=== PATIENT | female | born 1985 | race Caucasian/White ===

== ENCOUNTER 2017-12-16 23:41 | Inpatient (IN) | payer OTHER ==
--- NOTE | 2017-12-16 23:55 | HP ---
COWS - Scale Resting Pulse: 1= [place] 81-100 Sweatin=Flushed/Facial Moisture Restless Observation: 1= Difficult to Sit Still Pupil Size: 1= Pupils >than Normal Bone or Joint Aches: 4=Acute Joint/Muscle Pain Runny Nose/ Eye Tearin= None GI Upset > 30mins: 1= Stomach Cramp Tremor Observation: 2= Slight Tremor Visible Yawning Observation: 1= 1-2x During Session Anxiety or Irritability: 2=Irritable/Anxious Goose Flesh Skin: 0=Smooth Skin COWS Score: 15 CIWA Score - CIWA Score Nausea/Vomitin-No Nausea/No Vomiting Muscle Tremors: 4-Moderate,w/Arms Extend Anxiety: 4-Mod. Anxious/Guarded Agitation: 3 Paroxysmal Sweats: 3 Orientation: 0-Oriented Tacttile Disturbances: 1-Very Mild Itch/Numbness Auditory Disturbances: 0-None Visual Disturbances: 0-None Headache: 1-Very Mild CIWA-Ar Total Score: 16 Admission ROS BHS - HPI Chief Complaint: C/O WITHDRAWAL SX'S. SEEKING DETOX FOR HEROIN/ALCOHOL/RX BENZO DEPENDENCE Allergies/Adverse Reactions: Allergies Allergy/AdvReac Type Severity Reaction Status Date / Time No Known Allergies Allergy Verified 12/16/17 23:47 History of Present Illness: 32 Y.O. FEMALE WITH HX/O ALCOHOLISM, HEROIN, AND BENZO DEPENDENCE SEEKING DETOX. CLIENT IS KNOWN TO THIS PROGRAM. LAST HERE IN 2015. SELF REFERRED. DENIES ANY SIGNIFICANT PERIOD OF CLEAN TIME. Exam Limitations: Clinical Condition - Ebola screening Have you traveled outside of the country in the last 21 days: No Have you had contact with anyone from an Ebola affected area: No Have you been sick,other than usual withdrawal symptoms: No Do you have a fever: No - Review of Systems Constitutional: Chills, Loss of Appetite, Malaise, Night Sweats, Changes in sleep EENT: reports: No Symptoms Reported Respiratory: reports: No Symptoms reported Cardiac: reports: No Symptoms Reported GI: reports: Poor Appetite, Poor Fluid Intake, Abdominal cramping : reports: No Symptoms Reported Musculoskeletal: reports: Back Pain, Joint Pain Integumentary: reports: Flushing Neuro: reports: Headache Endocrine: reports: No Symptoms Reported Hematology: reports: No Symptoms Reported Psychiatric: reports: Anxious Other Systems: Reviewed and Negative Patient History - Patient Medical History Hx Anemia: No Hx Asthma: No Hx Chronic Obstructive Pulmonary Disease (COPD): No Hx Cancer: No Hx Cardiac Disorders: No Hx Congestive Heart Failure: No Hx Hypertension: No Hx Hypercholesterolemia: No Hx Pacemaker: No HX Cerebrovascular Accident: No Hx Seizures: No Hx Dementia: No Hx Diabetes: No Hx Gastrointestinal Disorders: No Hx Liver Disease: No Hx Genitourinary Disorders: No Hx Sexually Transmitted Disorders: No Hx Renal Disease (ESRD): No Hx Thyroid Disease: No Hx Human Immunodeficiency Virus (HIV): No Hx Hepatitis C: No Hx Depression: No Hx Suicide Attempt: No Hx Bipolar Disorder: No Hx Schizophrenia: No Other Medical History: ANXIETY/ADD - Patient Surgical History Past Surgical History: Yes Hx Neurologic Surgery: No Hx Cataract Extraction: No Hx Cardiac Surgery: No Hx Lung Surgery: No Hx Breast Surgery: No Hx Breast Biopsy: No Hx Abdominal Surgery: No Hx Appendectomy: No Hx Cholecystectomy: No Hx Genitourinary Surgery: No Hx Section: Yes (2008) Hx Orthopedic Surgery: No Hx Hysterectomy: No Anesthesia Reaction: No - PPD History Previous Implant?: Yes Documented Results: Negative w/proof Implanted On Prior R Admission?: Yes Date: 08/18/16 Results: 0MM PPD to be Administered?: Yes - Reproductive History Patient is a Female of Child Bearing Age (11 -55 yrs old): Yes Last Menstrual Period: 12/02/17 LMP comment: REG Patient : [place] [facility] - Smoking Cessation Smoking history: Current every day smoker Have you smoked in the past 12 months: Yes Aproximately how many cigarettes per day: 10 Cigars Per Day: 0 Hx Chewing Tobacco Use: No Initiated information on smoking cessation: Yes 'Breaking Loose' booklet given: 12/17/17 - Substance & Tx. History Hx Alcohol Use: Yes Hx Substance Use: Yes Substance Use Type: Alcohol, Cocaine, Heroin, Marijuana, Prescribed (XANAX/ VALIUM) Hx Substance Use Treatment: Yes ([facility]) - Substances Abused HEROIN Route: Inhalation Frequency: Daily Amount used: 10 BAGS Age of first use: 27 Date of Last Use: 12/16/17 LIQUOR Route: Oral Frequency: Daily Amount used: 1/2 PINT Age of first use: 17 Date of Last Use: 12/16/17 COCAINE Route: Inhalation Frequency: 1-3 times last 30 days Amount used: $10 Age of first use: 19 Date of Last Use: 12/16/17 THC Route: Smoking Frequency: Daily Amount used: 1 JOINT Age of first use: 16 Date of Last Use: 12/16/17 XANAX Route: Oral Frequency: Daily Amount used: 1MG Age of first use: 30 Date of Last Use: 12/16/17 VALIUM Route: Oral Frequency: Daily Amount used: 10 Age of first use: 30 Date of Last Use: 12/16/17 Family Disease History - Family Disease History Family Disease History: Heart Disease: Mother, CA: Father (THROAT CA, ALCOHOL ) , Other: Father Admission Physical Exam [facility] - Physical General Appearance: Yes: Appropriately Dressed, Mild Distress, Tremorous, Anxious HEENTM: Yes: EOMI, Normocephalic, Normal Voice, ESHA, Pharynx Normal Respiratory: Yes: Chest Non-Tender, Lungs Clear, Normal Breath Sounds, No Respiratory Distress, No Accessory Muscle Use Neck: Yes: No masses,lesions,Nodules, Supple, Trachea in good position Breast: Yes: Breast Exam Deferred Cardiology: Yes: Regular Rhythm, Regular Rate, S1, S2 Abdominal: Yes: Normal Bowel Sounds, Non Tender, Flat, Soft Genitourinary: Yes: Within Normal Limits Back: Yes: Normal Inspection Musculoskeletal: Yes: full range of Motion, Gait Steady Extremities: Yes: Normal Capillary Refill, Normal Range of Motion, Non-Tender, Tremors Neurological: Yes: commission associate II-XII NML intact, Fully Oriented, Alert, Motor Strength 5/5 Integumentary: Yes: Dry, Warm, Other (FLUSHING OF FACE) Lymphatic: Yes: Within Normal Limits - Diagnostic (1) Cocaine dependence, uncomplicated Current Visit: Yes Status: Chronic (2) Cannabis dependence, uncomplicated Current Visit: Yes Status: Chronic (3) Opioid dependence with withdrawal Current Visit: No Status: Chronic (4) Alcohol dependence with uncomplicated withdrawal Current Visit: No Status: Chronic (5) Nicotine dependence Current Visit: No Status: Chronic Qualifiers: Nicotine product type: cigarettes Substance use status: uncomplicated Qualified Code(s): F17.210 - Nicotine dependence, cigarettes, uncomplicated (6) Sedative, hypnotic or anxiolytic dependence with withdrawal, uncomplicated Current Visit: No Status: Chronic Cleared for Admission [facility] - Detox or Rehab [facility] Level of Care: Medically Managed Detox Regimen/Protocol: Methadone/Valium BHS Breath Alcohol Content Breath Alcohol Content: 0 Vital Signs - Vital Signs Vital Signs Refused: No Temperature: 96.5 F Temperature Source: Oral Pulse Rate: 84 Respiratory Rate: 20 Blood Pressure: 124/75 BP Location: Right Arm Blood Pressure Position: Sitting - Height Height: 5 ft 7 in - Weight Weight: 68.039 kg Weight Measurement Method: Standing Scale Body Mass Index (BMI): 23.5 - Bowel Function Bowel Movement: No Urine Pregancy Test - Test Device Lot Number: [id number] Expiration Date: 07/04/18 - Control Horizontal Line in Upper Control Window?: Yes - Result Urine Test Results: Negative- NO Line Present Urine Drug Screen - Test Device Lot Number: [id number] Expiration Date: 08/04/19 - Control Is Test Valid: Yes - Results Drug Screen Negative: No Urine Drug Screen Results: THC-Marijuana, SAMANTHA-Cocaine, OPI-Opiates, BZO- Benzodiazepines, OXY-Oxycodone
[2017-12-17 00:11] VITALS: BMI 23.5
[2017-12-17] MEDS ORDERED: guaiFENesin/D-METHORPHAN HB 10 ML UNIT-DOSE CUPS PO PRN (00:14)
[2017-12-17] MEDS ORDERED: LOPERAMIDE HCL 2 MG CAPSULE PO PRN (00:14)
[2017-12-17] MEDS ORDERED: ACETAMINOPHEN 325 MG TABLET (FP) PO PRN (00:14)
[2017-12-17] MEDS ORDERED: diazePAM 5 MG TABLET PO ONE (00:14)
[2017-12-17] MEDS ORDERED: MAG HYDROX/AL HYDROX/SIMETH 30 ML UNIT-DOSE CUP PO PRN (00:14)
[2017-12-17] MEDS ORDERED: MENTHOL/PHENOL 1 EACH UD MM PRN (00:14)
[2017-12-17] MEDS ORDERED: P-EPHED 60MG/TRIPROLIDI 2.5MG TABLET PO PRN (00:14)
[2017-12-17] MEDS ORDERED: MAGNESIUM CITRATE 300 ML BOTTLE PO PRN (00:14)
[2017-12-17] MEDS ORDERED: METHADONE HCL 10 MG TABLET (FOR DETOX USE ONLY) PO ONE ×3 (00:14→23:00)
[2017-12-17] MEDS ORDERED: MAGNESIUM HYDROX 2400MG/30ML ORAL SUSPENSION 30 ML CUP PO PRN (00:14)
[2017-12-17] MEDS: diazePAM 5 MG TABLET PO SCH ×3 (05:21→22:24)
--- NOTE | 2017-12-17 09:18 | CONSULT ---
[facility] Psychiatric Consult - Data Date of interview: 12/17/17 Admission source: [facility] Identifying data: This is 32 years old female, single mother of one, living with family, multimedia journalist working, with no psychiatric hospitalization history, looking for detoxification from Alcohol, Cocaine, Benzo, Nicotine Substance Abuse History: Smoking history: Current every day smoker. Have you smoked in the past 12 months: Yes. Aproximately how many cigarettes per day: 10. Cigars Per Day: 0. Hx Chewing Tobacco Use: No. Initiated information on smoking cessation: Yes. 'Breaking Loose' booklet given: 12/17/17. - Substance & Tx. History. Hx Alcohol Use: Yes. Hx Substance Use: Yes. Substance Use Type : Alcohol, Cocaine, Heroin, Marijuana, Prescribed (XANAX/VALIUM). Hx Substance Use Treatment: Yes ([facility]). - Substances Abused. HEROIN. Route: Inhalation. Frequency: Daily. Amount used: 10 BAGS. Age of first use: 27. Date of Last Use: 12/16/17. LIQUOR. Route: Oral. Frequency: Daily. Amount used: 1/2 PINT. Age of first use: 17. Date of Last Use: 12/16/17. COCAINE. Route: Inhalation. Frequency: 1-3 times last 30 days. Amount used: $ 10. Age of first use: 19. Date of Last Use: 12/16/17. THC. Route: Smoking. Frequency: Daily. Amount used: 1 JOINT. Age of first use: 16. Date of Last Use: 12/16/17. XANAX. Route: Oral. Frequency: Daily. Amount used : 1MG. Age of first use: 30. Date of Last Use: 12/16/17. VALIUM. Route: Oral. Frequency: Daily. Amount used: 10. Age of first use: 30. Date of Last Use: 12/16/17 Medical History: Denies significant medical issues Psychiatric History: Patient reports history of anxiety and depression, reports taking prior to admission: Adderal 10mg po tid. Seroquel 100mg po qhs Physical/Sexual Abuse/Trauma History: Denies Additional Comment: Seroquel 100mg po qhs Mental Status Exam - Mental Status Exam Alert and Oriented to: Person Cognitive Function: Fair Patient Appearance: Unkempt Mood: Sad Affect: Flat Patient Behavior: Sedated Speech Pattern: Delayed Voice Loudness: Mildly Soft/Quiet Thought Process: Goal Oriented Thought Disorder: Being Controlled Hallucinations: Denies Suicidal Ideation: Denies Homicidal Ideation: Denies Insight/Judgement: Fair Sleep: Difficulty falling asleep Appetite: Fair Muscle strength/Tone: Mild Hypotonicity Gait/Station: Shuffling Additional Comments: Seroquel 100mg po qhs Psychiatric Findings - Problem List ([place] 1, 2,3) (1) Cannabis dependence, uncomplicated Current Visit: Yes Status: Chronic (2) Cocaine dependence, uncomplicated Current Visit: Yes Status: Chronic (3) Admitted to substance misuse detoxification center Current Visit: No Status: Acute (4) Alcohol dependence with uncomplicated withdrawal Current Visit: No Status: Chronic (5) Marijuana dependence Current Visit: No Status: Chronic (6) Nicotine dependence Current Visit: No Status: Chronic Qualifiers: Nicotine product type: cigarettes Substance use status: uncomplicated Qualified Code(s): F17.210 - Nicotine dependence, cigarettes, uncomplicated (7) Opioid dependence with withdrawal Current Visit: No Status: Chronic (8) Sedative, hypnotic or anxiolytic dependence with withdrawal, uncomplicated Current Visit: No Status: Chronic Comment: RX - Initial Treatment Plan Initial Treatment Plan: Seroquel 100mg po qhs
--- NOTE | 2017-12-17 10:03 | PN ---
[facility] CIWA - CIWA Score Nausea/Vomitin Muscle Tremors: 3 Anxiety: 3 Agitation: 3 Paroxysmal Sweats: 1-Minimal Palms Moist Orientation: 0-Oriented Tacttile Disturbances: 1-Very Mild Itch/Numbness Auditory Disturbances: 1-Very Mild Visual Disturbances: 0-None Headache: 2-Mild CIWA-Ar Total Score: 17 BHS COWS - Scale Resting Pulse: 1= [place] 81-100 Sweatin=Flushed/Facial Moisture Restless Observation: 3= Extraneous Movement Pupil Size: 1= Pupils >than Normal Bone or Joint Aches: 2= Severe Diffuse Aches Runny Nose/ Eye Tearin= Runny Nose/Eyes GI Upset > 30mins: 2= Nausea/Diarrhea Tremor Observation of Outstretched Hands: 2= Slight Tremor Visible Yawning Observation: 1= 1-2x During Session Anxiety or Irritability: 2=Irritable/Anxious Goose Flesh Skin: 0=Smooth Skin COWS Score: 18 BHS Progress Note (SOAP) Subjective: ALERT,IRRITABLE,ANXIOUS,INTERRUPTED SLEEP,TREMOR,PAIN IN THE BODY AND BACK Objective: 12/17/17 10:02 Vital Signs Temperature 97.9 F 12/17/17 09:51 Pulse Rate 70 12/17/17 09:51 Respiratory Rate 18 12/17/17 09:51 Blood Pressure 112/61 12/17/17 09:51 O2 Sat by Pulse Oximetry (%) EKG NSR,NORMAL ECG LABS PENDING Assessment: 12/17/17 10:03 WITHDRAWAL SYMPTOM Plan: CONTINUE DETOX
[2017-12-17 10:09] LABS: HEMATOCRIT 34.7 % (32.4-45.2); HEMOGLOBIN 11.9 GM/dL (10.7-15.3); MCH 30.2 pg (25.7-33.7); MCHC 34.1 g/dl (32.0-36.0); MEAN CELL VOLUME 88.4 fl (80-96); MEAN PLT VOLUME 7.9 fl (7.5-11.1); PLATELET COUNT 259 K/MM3 (134-434); RBC 3.93 M/mm3 (3.60-5.2); RDW 13.5 % (11.6-15.6); WHITE BLOOD COUNT 7.2 K/mm3 (4.0-10.0)
[2017-12-17 10:28] LABS: CHLORIDE 105 mmol/L (98-107); POTASSIUM 3.9 mmol/L (3.5-5.1); SODIUM 139 mmol/L (136-145)
[2017-12-17 10:41] LABS: ALBUMIN 3.2 g/dl (3.4-5.0); ALK PHOS 69 U/L (45-117); ANION GAP 9 (8-16); BILIRUBIN,TOTAL 0.4 mg/dL (0.2-1.0); BLOOD UREA NITROGEN 10 mg/dL (7-18); CALCIUM 7.7 mg/dL (8.5-10.1); CO2 25 mmol/L (21-32); CREATININE 0.6 mg/dL (0.55-1.02); GLUCOSE,RANDOM 97 mg/dL (74-106); SGOT/AST 10 U/L (15-37); SGPT/ALT 11 U/L (12-78); TOT PROT 5.9 g/dl (6.4-8.2)
[2017-12-17] MEDS: diazePAM 5 MG TABLET PO PRN ×2 (10:41→17:25)
[2017-12-17] MEDS: PRENATAL VITAMINS W/ FOLIC ACID TABLET (FP) PO SCH (10:42)
[2017-12-17] MEDS: NICOTINE 14 MG/24 HOURS TOPICAL PATCH TD SCH (10:42)
[2017-12-17] MEDS: IBUPROFEN 400 MG TABLET (FP) PO PRN (10:43)
--- NOTE | 2017-12-17 11:04 | PN ---
BHS Progress Note Note: WITHDRAWAL SYMPTOM,MEDICATION ADJUSTED
[2017-12-17] MEDS: CYCLOBENZAPRINE HCL 10 MG TABLET (FP) PO PRN ×2 (11:12→17:25)
[2017-12-17 15:21] LABS: URINE APPEARANCE CLOUDY; URINE BILIRUBIN NEGATIVE (NEGATIVE); URINE BLOOD NEGATIVE (NEGATIVE); URINE COLOR DKYELLOW; URINE GLUCOSE (UA) NEGATIVE (NEGATIVE); URINE KETONE NEGATIVE (NEGATIVE); URINE NITRITE POSITIVE (NEGATIVE); URINE PROTEIN NEGATIVE (NEGATIVE); URINE UROBILINOGEN NEGATIVE mg/dL (0.2-1.0)
[2017-12-17 15:26] LABS: URINE LEUK ESTERASE 1+ (NEGATIVE)
[2017-12-17 15:29] LABS: EPI CELLS FEW /HPF (FEW); URINE BACTERIA MANY /hpf (NONE SEEN); URINE MUCUS MANY
--- NOTE | 2017-12-17 16:43 | EKG ---
Test Reason : Blood Pressure : / mmHG Vent. Rate : 066 BPM Atrial Rate : 066 BPM P-R Int : 136 ms QRS Dur : 086 ms QT Int : 406 ms P-R-T Axes : 051 066 044 degrees QTc Int : 425 ms NORMAL SINUS RHYTHM NORMAL ECG WHEN COMPARED WITH ECG OF 17-DEC-2017 00:10, PREMATURE VENTRICULAR COMPLEXES ARE NO LONGER PRESENT Confirmed by NATHALY KING MD ([id number]) on 12/17/2017 4:43:17 PM Referred By: Steven Jarquin Confirmed By:NATHALY KING MD
[2017-12-17] MEDS: NICOTINE POLACRILEX 2 MG GUM BUC PRN ×2 (17:25→19:33)
[2017-12-17] MEDS: QUEtiapine FUMARATE 100 MG TABLET (FP) PO SCH (20:13)
[2017-12-17] MEDS: THIAMINE HCL 100 MG TABLET (FP) PO SCH (22:24)
[2017-12-18] MEDS: CYCLOBENZAPRINE HCL 10 MG TABLET (FP) PO PRN ×3 (00:36→22:51)
[2017-12-18] MEDS: diazePAM 5 MG TABLET PO SCH ×3 (05:14→22:51)
[2017-12-18] MEDS ORDERED: METHADONE HCL 5 MG TABLET (FOR DETOX USE ONLY) PO ONE (10:00)
[2017-12-18] MEDS ORDERED: METHADONE HCL 10 MG TABLET (FOR DETOX USE ONLY) PO SCH (10:00)
[2017-12-18] MEDS: NICOTINE 14 MG/24 HOURS TOPICAL PATCH TD SCH (10:19)
[2017-12-18] MEDS: PRENATAL VITAMINS W/ FOLIC ACID TABLET (FP) PO SCH (10:19)
[2017-12-18] MEDS: diazePAM 5 MG TABLET PO PRN ×2 (10:19→18:54)
--- NOTE | 2017-12-18 10:24 | PN ---
[facility] CIWA - CIWA Score Nausea/Vomitin Muscle Tremors: 3 Anxiety: 3 Agitation: 3 Paroxysmal Sweats: 1-Minimal Palms Moist Orientation: 0-Oriented Tacttile Disturbances: 1-Very Mild Itch/Numbness Auditory Disturbances: 1-Very Mild Visual Disturbances: 1-Very Mild Sensitivity Headache: 2-Mild CIWA-Ar Total Score: 18 BHS COWS - Scale Resting Pulse: 0= [place] 80 or Below Sweatin=Flushed/Facial Moisture Restless Observation: 3= Extraneous Movement Pupil Size: 0= Normal to Room Light Bone or Joint Aches: 2= Severe Diffuse Aches Runny Nose/ Eye Tearin= Runny Nose/Eyes GI Upset > 30mins: 2= Nausea/Diarrhea Tremor Observation of Outstretched Hands: 2= Slight Tremor Visible Yawning Observation: 1= 1-2x During Session Anxiety or Irritability: 2=Irritable/Anxious Goose Flesh Skin: 0=Smooth Skin COWS Score: 16 S Progress Note (SOAP) Subjective: ALERT,IRRITABLE,ANXIOUS,INTERRUPTED SLEEP,TREMOR,PAIN IN THE BODY AND BACK Objective: 12/18/17 10:21 Vital Signs Temperature 97.9 F 12/18/17 06:00 Pulse Rate 65 12/18/17 06:00 Respiratory Rate 18 12/18/17 06:30 Blood Pressure 125/64 12/18/17 06:00 O2 Sat by Pulse Oximetry (%) 12/17/17 08:00 Sodium 139 Potassium 3.9 Chloride 105 Carbon Dioxide 25 Anion Gap 9 BUN 10 Creatinine 0.6 12/18/17 10:22 Laboratory Last Values WBC 7.2 K/mm3 (4.0-10.0) D 12/17/17 08:00 RBC 3.93 M/mm3 (3.60-5.2) 12/17/17 08:00 Hgb 11.9 GM/dL (10.7-15.3) 12/17/17 08:00 Hct 34.7 % (32.4-45.2) 12/17/17 08:00 MCV 88.4 fl (80-96) 12/17/17 08:00 MCH 30.2 pg (25.7-33.7) 12/17/17 08:00 MCHC 34.1 g/dl (32.0-36.0) 12/17/17 08:00 RDW 13.5 % (11.6-15.6) 12/17/17 08:00 Plt Count 259 K/MM3 (134-434) 12/17/17 08:00 MPV 7.9 fl (7.5-11.1) 12/17/17 08:00 Sodium 139 mmol/L (136-145) 12/17/17 08:00 Potassium 3.9 mmol/L (3.5-5.1) 12/17/17 08:00 Chloride 105 mmol/L (98-107) 12/17/17 08:00 Carbon Dioxide 25 mmol/L (21-32) 12/17/17 08:00 Anion Gap 9 (8-16) 12/17/17 08:00 BUN 10 mg/dL (7-18) 12/17/17 08:00 Creatinine 0.6 mg/dL (0.55-1.02) 12/17/17 08:00 Creat Clearance w eGFR > 60 (>60) 12/17/17 08:00 Random Glucose 97 mg/dL (74-106) 12/17/17 08:00 Calcium 7.7 mg/dL (8.5-10.1) L 12/17/17 08:00 Total Bilirubin 0.4 mg/dL (0.2-1.0) D 12/17/17 08:00 AST 10 U/L (15-37) L 12/17/17 08:00 ALT 11 U/L (12-78) L 12/17/17 08:00 Alkaline Phosphatase 69 U/L (45-117) 12/17/17 08:00 Total Protein 5.9 g/dl (6.4-8.2) L 12/17/17 08:00 Albumin 3.2 g/dl (3.4-5.0) L 12/17/17 08:00 Urine Color Dkyellow 12/17/17 12:00 Urine Appearance Cloudy 12/17/17 12:00 Urine pH 6.0 (5.0-8.0) 12/17/17 12:00 Ur Specific [place] 1.018 (1.001-1.035) 12/17/17 12:00 Urine Protein Negative (NEGATIVE) 12/17/17 12:00 Urine Glucose (UA) Negative (NEGATIVE) 12/17/17 12:00 Urine Ketones Negative (NEGATIVE) 12/17/17 12:00 Urine Blood Negative (NEGATIVE) 12/17/17 12:00 Urine Nitrite Positive (NEGATIVE) 12/17/17 12:00 Urine Bilirubin Negative (NEGATIVE) 12/17/17 12:00 Urine Urobilinogen Negative mg/dL (0.2-1.0) 12/17/17 12:00 Ur Leukocyte Esterase 1+ (NEGATIVE) H 12/17/17 12:00 Urine WBC (Auto) 28 /hpf (3-5) 12/17/17 12:00 Urine RBC (Auto) <1 /hpf (0-3) 12/17/17 12:00 Ur Epithelial Cells Few /HPF (FEW) 12/17/17 12:00 Urine Bacteria Many /hpf (NONE SEEN) 12/17/17 12:00 Urine Mucus Many 12/17/17 12:00 RPR Titer Nonreactive (NONREACTIVE) 12/17/17 08:00 Hep C Ab Diagnostic <0.1 s/co ratio (0.0-0.9) 12/17/17 08:00 HIV 1&2 Antibody Screen Negative 12/17/17 08:00 HIV P24 Antigen Negative 12/17/17 08:00 Assessment: 12/18/17 10:23 WITHDRAWAL SYMPTOM Plan: CONTINUE DETOX,REPEAT UA,PSYCHIATRIC RE EVALUATION
[2017-12-18 15:25] LABS: URINE APPEARANCE SLCLOUDY; URINE BILIRUBIN NEGATIVE (NEGATIVE); URINE BLOOD NEGATIVE (NEGATIVE); URINE COLOR LTYELLOW; URINE GLUCOSE (UA) NEGATIVE (NEGATIVE); URINE KETONE NEGATIVE (NEGATIVE); URINE NITRITE NEGATIVE (NEGATIVE); URINE PROTEIN NEGATIVE (NEGATIVE); URINE UROBILINOGEN NEGATIVE mg/dL (0.2-1.0)
[2017-12-18 15:30] LABS: URINE LEUK ESTERASE 2+ (NEGATIVE)
[2017-12-18 15:48] LABS: EPI CELLS FEW /HPF (FEW)
[2017-12-18] MEDS: QUEtiapine FUMARATE 100 MG TABLET (FP) PO SCH (20:13)
[2017-12-18] MEDS: THIAMINE HCL 100 MG TABLET (FP) PO SCH (22:51)
[2017-12-19] MEDS: CYCLOBENZAPRINE HCL 10 MG TABLET (FP) PO PRN ×3 (00:50→14:57)
[2017-12-19] MEDS: diazePAM 5 MG TABLET PO PRN ×3 (05:11→19:26)
[2017-12-19] MEDS: IBUPROFEN 400 MG TABLET (FP) PO PRN (06:54)
[2017-12-19] MEDS ORDERED: METHADONE HCL 10 MG TABLET (FOR DETOX USE ONLY) PO ONE (10:00)
[2017-12-19] MEDS ORDERED: METHADONE HCL 5 MG TABLET (FOR DETOX USE ONLY) PO SCH (10:00)
[2017-12-19] MEDS: PRENATAL VITAMINS W/ FOLIC ACID TABLET (FP) PO SCH (10:15)
[2017-12-19] MEDS: NICOTINE 14 MG/24 HOURS TOPICAL PATCH TD SCH (10:15)
[2017-12-19] MEDS: NICOTINE POLACRILEX 2 MG GUM BUC PRN (10:15)
[2017-12-19] MEDS: diazePAM 5 MG TABLET PO SCH ×2 (10:15→22:39)
--- NOTE | 2017-12-19 11:10 | PN ---
S Progress Note (SOAP) Subjective: ALERT,IRRITABLE,ANXIOUS,INTERRUPTED SLEEP,PAIN IN THE BODY Objective: 12/19/17 11:09 Vital Signs Temperature 97.0 F L 12/19/17 09:49 Pulse Rate 81 12/19/17 09:49 Respiratory Rate 18 12/19/17 09:49 Blood Pressure 123/75 12/19/17 09:49 O2 Sat by Pulse Oximetry (%) Assessment: 12/19/17 11:09 WITHDRAWAL SYMPTOM Plan: CONTINUE DETOX,PSYCHIATRIC EVALUATION FOR MEDICATION
--- NOTE | 2017-12-19 15:18 | PN ---
Psychiatric Progress Note Vital Signs: Vital Signs Period Temp Pulse Resp BP Sys/Arias Pulse Ox Last 24 Hr 97.0 F-98.4 F 72-100 16-20 105-126/59-85 Date of Session: 12/19/17 Chief Complaint:: " I cannot sleep at night.I need my ambien." HPI: Day 4 of detox treatment for alcohol,cocaine and benzodiazepine dependence on [address].Uneventful hospital course except for complaint of insomnia.Patient reports good tolerablity to the current medication protocol. ROS: Unremarkable. Current Medications: Active Medications Generic Name Dose Route Start Last Admin Trade Name Freq PRN Reason Stop Dose Admin Acetaminophen 650 mg 12/17/17 00:14 Tylenol - PO Q4H PRN FEVER Al Hydroxide/Mg Hydroxide 30 ml 12/17/17 00:14 Mylanta Oral Suspension - PO Q6H PRN DYSPEPSIA Cyclobenzaprine HCl 10 mg 12/17/17 10:49 12/19/17 14:57 Flexeril - PO 10 mg TID PRN Administration MUSCLE SPASMS Diazepam 5 mg 12/19/17 10:00 12/19/17 10:15 Valium - PO 12/20/17 22:01 5 mg BID JANEY Administration Diazepam 5 mg 12/21/17 10:00 Valium - PO 12/21/17 10:01 DAILY JANEY Diazepam 10 mg 12/17/17 00:14 12/19/17 14:58 Valium - PO 12/20/17 00:14 10 mg Q4H PRN Administration WITHDRAWAL(CONT SUBST) Eucalyptus/Menthol/Phenol/Sorbitol 1 each 12/17/17 00:14 Cepastat Lozenge - MM Q4H PRN SORE THROAT Guaifenesin 10 ml 12/17/17 00:14 Robitussin Dm - PO Q6H PRN COUGH Ibuprofen 400 mg 12/17/17 00:14 12/19/17 06:54 Motrin - PO 400 mg Q6H PRN Administration PAIN LEVEL 4-6 Loperamide HCl 4 mg 12/17/17 00:14 Imodium - PO Q6H PRN DIARRHEA Magnesium Citrate 300 ml 12/17/17 00:14 Citroma - PO Q48H PRN CONSTIPATION Magnesium Hydroxide 30 ml 12/17/17 00:14 12/18/17 13:30 Milk Of Magnesia - PO 30 ml DAILY PRN Administration CONSTIPATION Methadone HCl 5 mg 12/20/17 06:00 Dolophine - PO 12/20/17 06:01 ONCE@0600 ONE Nicotine 14 mg 12/17/17 10:00 12/19/17 10:15 Nicoderm Patch - TD Not Given DAILY JANEY Nicotine Polacrilex 2 mg 12/17/17 10:50 12/19/17 10:15 Nicorette Gum - BUC 2 mg Q2H PRN Administration NICOTINE REPLACEMENT RX Multivit/Folic Acid/Iron 1 tab 12/17/17 10:00 12/19/17 10:15 Vitamins (Sjr) - PO 1 tab DAILY JANEY Administration Pseudoephedrine/Triprolidine 1 combo 12/17/17 00:14 12/19/17 00:50 Actifed - PO 1 combo TID PRN Administration NASAL CONGESTION Quetiapine Fumarate 100 mg 12/17/17 20:00 12/18/17 20:13 Seroquel - PO 100 mg HS@2000 JANEY Administration Thiamine HCl 100 mg 12/17/17 22:00 12/18/17 22:51 Vitamin B1 - PO 100 mg HS JANEY Administration Zolpidem Tartrate 10 mg 12/19/17 22:00 Ambien - PO HS PRN INSOMNIA Medication(s) Change(s): Ambien 10 mg po hs prn is added to the regimen.Patient is made aware of the potential for parasomnias (sleep-walking).As per patient, she has always well tolerated ambien in the past.NO script will be dispensed at discharge (patient reports that she has own supply at home). Current Side Effect: No Lab tests ordered: No Lab tests reviewed: Yes Provider note:: Met with patient.Issue : insomnia persists in spite of seroquel at bedtime.Hospital course is otherwise unremarkable.Principles of sleep hygiene are revisited with patient.Ambien restarted.No indication for further psychiatric intervention.Baseline mental status. Total face to face time:: 25 Mental Status Exam - Mental Status Exam Alert and Oriented to: Time, Place, Person Cognitive Function: Good Patient Appearance: Well Groomed Mood: Hopeful, Euthymic Patient Behavior: Appropriate (pleasant ), Cooperative Speech Pattern: Clear, Appropriate Voice Loudness: Normal Thought Process: Intact, Goal Oriented Thought Disorder: Not Present Hallucinations: Denies Suicidal Ideation: Denies Homicidal Ideation: Denies Insight/Judgement: Poor Sleep: Poorly, Difficulty falling asleep Appetite: Good Muscle strength/Tone: Normal Gait/Station: Normal Psychiatric Treatment Plan - Problem List (1) Insomnia Current Visit: Yes
[2017-12-19] MEDS: QUEtiapine FUMARATE 100 MG TABLET (FP) PO SCH (19:26)
[2017-12-19] MEDS ORDERED: ZOLPIDEM TARTRATE 10 MG TABLET (PARK CARE ONLY) PO PRN (22:00)
[2017-12-19] MEDS: THIAMINE HCL 100 MG TABLET (FP) PO SCH (22:39)
[2017-12-19 23:02] VITALS: BP 116/75; PULSE 91; TEMP 98.1
[2017-12-20] MEDS: CYCLOBENZAPRINE HCL 10 MG TABLET (FP) PO PRN (01:39)
[2017-12-20] MEDS ORDERED: METHADONE HCL 5 MG TABLET (FOR DETOX USE ONLY) PO ONE (06:00)
[2017-12-20] MEDS ORDERED: METHADONE HCL 40 MG DISPERSABLE TABLET PO ONE (06:00)
--- NOTE | 2017-12-20 08:48 | PN ---
S Progress Note (SOAP) Subjective: ALERT,NO COMPLAINT Objective: 12/20/17 08:46 Vital Signs Temperature 98.1 F 12/19/17 23:02 Pulse Rate 91 H 12/19/17 23:02 Respiratory Rate 18 12/20/17 03:30 Blood Pressure 116/75 12/19/17 23:02 O2 Sat by Pulse Oximetry (%) Assessment: 12/20/17 08:46 DETOX COMPLETED,NO WITHDRAWAL SYMPTOM Plan: DISCHARGE TODAY,FOLLOW UP WITH AFTER CARE PROGRAM ARRANGEMENT
--- NOTE | 2017-12-20 08:50 | DS ---
[facility] Detox Discharge Summary Admission Date: 12/17/17 Discharge Date: 12/20/17 - History Present History: Cannabis Dependence, Cocaine Dependence, Opioid Dependence, Sedative Dependence Additional Comments: FOLLOW UP WITH AFTER CARE PROGRAM ARRANGEMENT - Physical Exam Results Vital Signs: Vital Signs Temperature 98.1 F 12/19/17 23:02 Pulse Rate 91 H 12/19/17 23:02 Respiratory Rate 18 12/20/17 03:30 Blood Pressure 116/75 12/19/17 23:02 O2 Sat by Pulse Oximetry (%) Pertinent Admission Physical Exam Findings: WITHDRAWAL SIGNS AND SYMPTOM Vital Signs Temperature 98.1 F 12/19/17 23:02 Pulse Rate 91 H 12/19/17 23:02 Respiratory Rate 18 12/20/17 03:30 Blood Pressure 116/75 12/19/17 23:02 O2 Sat by Pulse Oximetry (%) - Treatment Hospital Course: Detox Protocol Followed, Detoxed Safely, Responded well, Discharged Condition Good Patient has Accepted a Rehab Referral to: DECLINED - Medication Discharge Medications: Ambulatory Orders Adderall 10 mg Tablet 10 mg PO BID 12/17/17 Quetiapine Fumarate [Seroquel] 100 mg PO HS #30 tablet 12/17/17 - Diagnosis (1) Opioid dependence with withdrawal Status: Chronic (2) Cannabis dependence, uncomplicated Status: Chronic (3) Cocaine dependence, uncomplicated Status: Chronic (4) Alcohol dependence with uncomplicated withdrawal Status: Chronic (5) Sedative, hypnotic or anxiolytic dependence with withdrawal, uncomplicated Status: Chronic (6) Insomnia Status: Acute - AMA Did Patient Leave Against Medical Advice: No
[2017-12-21] MEDS ORDERED: METHADONE HCL 10 MG TABLET (FOR DETOX USE ONLY) PO SCH (10:00)
[2017-12-21] MEDS ORDERED: diazePAM 5 MG TABLET PO SCH (10:00)
[2017-12-22] MEDS ORDERED: METHADONE HCL 5 MG TABLET (FOR DETOX USE ONLY) PO SCH (06:00)
== END 2017-12-20 06:58 | disposition home or self-care (01) | DRG 773 ==
LOC: YASAS 23:41 → Y6N 12-17 00:04
PROVIDERS: ADMIT Internal Medicine; ATTEND Internal Medicine
PROC: HZ2ZZZZ Detoxification Services for Substance Abuse Treatment (ICD-10-PCS; principal; 2017-12-17)
DX: F11.23 Opioid dependence with withdrawal (principal); F13.230 Sedative, hypnotic or anxiolytic dependence with withdrawal, uncomplicated; F10.230 Alcohol dependence with withdrawal, uncomplicated; F14.20 Cocaine dependence, uncomplicated; F12.20 Cannabis dependence, uncomplicated; F17.210 Nicotine dependence, cigarettes, uncomplicated; F41.9 Anxiety disorder, unspecified; F98.8 Other specified behavioral and emotional disorders with onset usually occurring in childhood and adolescence; G47.00 Insomnia, unspecified
CPT/HCPCS: 36415; 80053; 81003; 81015; 85027; 86593; 87389; 93005; 93010

== ENCOUNTER 2019-01-25 10:32 | Inpatient (IN) | payer BC ==
[2019-01-25 11:11] VITALS: BMI 23.3
--- NOTE | 2019-01-25 12:34 | HP ---
COWS - Scale Resting Pulse: 0= SD 80 or Below Sweatin=Flushed/Facial Moisture Restless Observation: 1= Difficult to Sit Still Pupil Size: 0= Normal to Room Light Bone or Joint Aches: 2= Severe Diffuse Aches Runny Nose/ Eye Tearin= Runny Nose/Eyes GI Upset > 30mins: 1= Stomach Cramp Tremor Observation: 2= Slight Tremor Visible Yawning Observation: 2= >3x During Session Anxiety or Irritability: 2=Irritable/Anxious Goose Flesh Skin: 3=Piloerection COWS Score: 17 CIWA Score - Admission Criteria [facility] Guidelines: Admission for Medically Managed Detox: Requires at least one of the followin. CIWA greater than 12 2. Seizures within the past 24 hours 3. Delirium tremens within the past 24 hours 4. Hallucinations within the past 24 hours 5. Acute intervention needed for co occurring medical disorder 6. Acute intervention needed for co occurring psychiatric disorder 7. Severe withdrawal that cannot be handled at a lower level of care (continued vomiting, continued diarrhea, abnormal vital signs) requiring intravenous medication and/or fluids 8. Admission [facility] Chief Complaint: I was clean for a long time and recently relapsed. Allergies/Adverse Reactions: Allergies Allergy/AdvReac Type Severity Reaction Status Date / Time No Known Allergies Allergy Verified 01/25/19 11:04 History of Present Illness: pt is a 33yrold female with a history of opioid dependence seeking detox for treatment. Pt was sober for about a year and recent relapsed. Exam Limitations: No Limitations - Ebola screening Have you traveled outside of the country in the last 21 days: No Have you had contact with anyone from an Ebola affected area: No Have you been sick,other than usual withdrawal symptoms: No Do you have a fever: No - Review of Systems Constitutional: Chills, Diaphoresis EENT: reports: Tearing, Nose Congestion Respiratory: reports: No Symptoms reported Cardiac: reports: No Symptoms Reported GI: reports: Poor Appetite, Poor Fluid Intake : reports: No Symptoms Reported Musculoskeletal: reports: No Symptoms Reported Integumentary: reports: Dryness, Flushing Neuro: reports: Headache, Tingling, Tremors Endocrine: reports: Excessive Sweating, Flushing, Intolerance to Heat Hematology: reports: No Symptoms Reported Psychiatric: reports: Judgement Intact, Mood/Affect Appropiate, Orientated x3, Agitated, Anxious Other Systems: Reviewed and Negative Patient History - Patient Medical History Hx Anemia: No Hx Asthma: No Hx Chronic Obstructive Pulmonary Disease (COPD): No Hx Cancer: No Hx Cardiac Disorders: No Hx Congestive Heart Failure: No Hx Hypertension: No Hx Hypercholesterolemia: No Hx Pacemaker: No HX Cerebrovascular Accident: No Hx Seizures: No Hx Dementia: No Hx Diabetes: No Hx Gastrointestinal Disorders: No Hx Liver Disease: No Hx Genitourinary Disorders: No Hx Sexually Transmitted Disorders: No Hx Renal Disease (ESRD): No Hx Thyroid Disease: No Hx Human Immunodeficiency Virus (HIV): No (negative) Hx Hepatitis C: No (negative) Hx Depression: No Hx Suicide Attempt: No (pt denies) Hx Bipolar Disorder: No Hx Schizophrenia: No - Patient Surgical History Past Surgical History: Yes Hx Neurologic Surgery: No Hx Cataract Extraction: No Hx Cardiac Surgery: No Hx Lung Surgery: No Hx Breast Surgery: No Hx Breast Biopsy: No Hx Abdominal Surgery: No Hx Appendectomy: No Hx Cholecystectomy: No Hx Genitourinary Surgery: No Hx Section: Yes (2008) Hx Orthopedic Surgery: No Hx Hysterectomy: No Anesthesia Reaction: No - PPD History Previous Implant?: Yes Documented Results: Negative w/proof Date: 12/19/17 Results: 0MM PPD to be Administered?: No - Reproductive History Patient is a Female of Child Bearing Age (11 -55 yrs old): Yes Last Menstrual Period: 01/18/19 Patient : No - Smoking Cessation Smoking history: Current every day smoker Have you smoked in the past 12 months: Yes Aproximately how many cigarettes per day: 10 Cigars Per Day: 0 Hx Chewing Tobacco Use: No Initiated information on smoking cessation: Yes 'Breaking Loose' booklet given: 01/25/19 - Substance & Tx. History Hx Alcohol Use: No Hx Substance Use: Yes Substance Use Type: Heroin Hx Substance Use Treatment: Yes (last detox 12/2017) - Substances abused Oxycontin Substance route: Oral Frequency: Daily Amount used: 6 pills (30mg) Age of first use: 25 Date of last use: 02/01/19 Family Disease History - Family Disease History Family Disease History: Heart Disease: Mother, CA: Father (THROAT CA, ALCOHOL ) , Other: Father Admission Physical Exam BHS - Vital Signs Vital Signs: Vital Signs - 24 hr 01/25/19 01/25/19 11:07 11:22 Temperature 98 F 98 F Pulse Rate 64 64 Respiratory 18 18 Rate Blood Pressure 115/64 115/64 - Physical General Appearance: Yes: Moderate Distress, Tremorous, Irritable, Sweating, Anxious HEENTM: Yes: Hearing grossly Normal, Normal Voice, Nasal Congestion, Rhinorrhea Respiratory: Yes: Lungs Clear, Normal Breath Sounds, No Respiratory Distress Neck: Yes: Within Normal Limits Breast: Yes: Within Normal Limits Cardiology: Yes: Regular Rhythm, Regular Rate, S1, S2 Abdominal: Yes: Normal Bowel Sounds, Non Tender, Soft Genitourinary: Yes: Within Normal Limits Back: Yes: Normal Inspection Musculoskeletal: Yes: full range of Motion Extremities: Yes: Normal Capillary Refill, Normal Inspection, Non-Tender, Tremors Neurological: Yes: Fully Oriented, Alert, Normal Response Integumentary: Yes: Normal Color, Diaphoresis Lymphatic: Yes: Within Normal Limits - Diagnostic (1) Insomnia Current Visit: Yes Status: Chronic Qualifiers: Insomnia type: primary Qualified Code(s): F51.01 - Primary insomnia (2) Nicotine dependence Current Visit: Yes Status: Chronic Qualifiers: Nicotine product type: cigarettes Substance use status: uncomplicated Qualified Code(s): F17.210 - Nicotine dependence, cigarettes, uncomplicated (3) Opioid dependence with withdrawal Current Visit: Yes Status: Chronic Cleared for Admission [facility] - Detox or Rehab [facility] Level of Care: Medically Managed Detox Regimen/Protocol: Methadone Breathalyzer - Breathalyzer Breathalyzer: 0 POC Urine test - Test device test lot number: [id number] Expiration date: 06/04/20 - Control test control: Yes - Result Urine Test Results: Negative - NO line present Urine Drug Screen - Test Device Lot number: [id number] Expiration date: 09/03/20 - Control Is test valid?: Yes - Results Drug screen NEGATIVE: No Urine drug screen results: THC-Marijuana, FEN-Fentanyl, MOP-Opiates, OXY- Oxycodone, MTD-Methadone, BZO-Benzodiazepines Inpatient Rehab Admission - Rehab Decision to Admit Inpatient rehab admission?: No
[2019-01-25] MEDS ORDERED: IBUPROFEN 400 MG TABLET (FP) PO PRN (12:44)
[2019-01-25] MEDS ORDERED: P-EPHED 60MG/TRIPROLIDI 2.5MG TABLET PO PRN (12:44)
[2019-01-25] MEDS ORDERED: MAGNESIUM CITRATE 300 ML BOTTLE PO PRN (12:44)
[2019-01-25] MEDS ORDERED: BISMUTH SUBSALICYLATE 524 MG/30 ML UD PO PRN (12:44)
[2019-01-25] MEDS ORDERED: MENTHOL/PHENOL 1 EACH UD MM PRN (12:44)
[2019-01-25] MEDS ORDERED: NICOTINE POLACRILEX 4 MG GUM BUC PRN (12:44)
[2019-01-25] MEDS ORDERED: ACETAMINOPHEN 325 MG TABLET (FP) PO PRN ×2 (12:44)
[2019-01-25] MEDS ORDERED: MAG HYDROX/AL HYDROX/SIMETH 30 ML UNIT-DOSE CUP PO PRN (12:44)
[2019-01-25] MEDS ORDERED: MELATONIN 5 MG TABLETS PO PRN (12:44)
[2019-01-25] MEDS ORDERED: ONDANSETRON *ODT* 4 MG TABLET SL PRN (12:44)
[2019-01-25] MEDS ORDERED: MAGNESIUM HYDROX 2400MG/30ML ORAL SUSPENSION 30 ML CUP PO PRN (12:44)
[2019-01-25] MEDS ORDERED: METHADONE HCL 10 MG TABLET (FOR DETOX USE ONLY) PO ONE ×2 (14:00→23:00)
[2019-01-25] MEDS: diazePAM 5 MG TABLET PO PRN ×2 (15:22→22:23)
[2019-01-25] MEDS: hydrOXYzine PAMOATE 25 MG CAPSULE (FP) PO PRN (17:25)
[2019-01-25] MEDS: THIAMINE HCL 100 MG TABLET (FP) PO SCH (22:25)
[2019-01-25] MEDS: QUEtiapine FUMARATE 50 MG TABLET PO PRN (22:26)
[2019-01-25 23:32] LABS: HEMATOCRIT 37.6 % (32.4-45.2); HEMOGLOBIN 12.6 GM/dL (10.7-15.3); MCH 29.8 pg (25.7-33.7); MCHC 33.6 g/dl (32.0-36.0); MEAN CELL VOLUME 88.6 fl (80-96); MEAN PLT VOLUME 9.2 fl (7.5-11.1); PLATELET COUNT 181 K/MM3 (134-434); RBC 4.24 M/mm3 (3.60-5.2); WHITE BLOOD COUNT 6.3 K/mm3 (4.0-10.0)
[2019-01-25 23:40] LABS: ALBUMIN 3.8 g/dl (3.4-5.0); ALK PHOS 85 U/L (45-117); ANION GAP 6 MMOL/L (8-16); BILIRUBIN,TOTAL 0.3 mg/dL (0.2-1); BLOOD UREA NITROGEN 8 mg/dL (7-18); CALCIUM 9.2 mg/dL (8.5-10.1); CHLORIDE 105 mmol/L (98-107); CO2 27 mmol/L (21-32); CREATININE 0.6 mg/dL (0.55-1.3); SGOT/AST 15 U/L (15-37); SGPT/ALT 18 U/L (13-61); SODIUM 138 mmol/L (136-145); TOT PROT 7.4 g/dl (6.4-8.2)
[2019-01-25 23:41] LABS: GLUCOSE,RANDOM 84 mg/dL (74-106); POTASSIUM 4.4 mmol/L (3.5-5.1)
[2019-01-26] MEDS: diazePAM 5 MG TABLET PO PRN ×4 (06:10→22:12)
[2019-01-26] MEDS ORDERED: METHADONE HCL 10 MG TABLET (FOR DETOX USE ONLY) PO ONE (10:00)
[2019-01-26] MEDS: PRENATAL VITAMINS W/ FOLIC ACID TABLET (FP) PO SCH (10:34)
[2019-01-26] MEDS: NICOTINE 21 MG/24 HOURS TOPICAL PATCH TD SCH (10:35)
[2019-01-26] MEDS: METHOCARBAMOL 500 MG TABLET PO PRN ×2 (10:36→18:09)
--- NOTE | 2019-01-26 12:27 | PN ---
BHS COWS - Scale Resting Pulse: 0= [place] 80 or Below Sweatin=Flushed/Facial Moisture Restless Observation: 1= Difficult to Sit Still Pupil Size: 0= Normal to Room Light Bone or Joint Aches: 2= Severe Diffuse Aches Runny Nose/ Eye Tearin= Nasal Congestion GI Upset > 30mins: 0= None Tremor Observation of Outstretched Hands: 2= Slight Tremor Visible Yawning Observation: 2= >3x During Session Anxiety or Irritability: 2=Irritable/Anxious Goose Flesh Skin: 0=Smooth Skin COWS Score: 12 BHS Progress Note (SOAP) Subjective: agitation sweats chills shakes interrupted sleep body aches Objective: 01/26/19 12:28 Vital Signs Temperature 98.6 F 01/26/19 10:44 Pulse Rate 70 01/26/19 10:44 Respiratory Rate 18 01/26/19 10:44 Blood Pressure 118/75 01/26/19 10:44 O2 Sat by Pulse Oximetry (%) Laboratory Tests 01/25/19 01/25/19 01/25/19 13:00 13:00 13:00 WBC 6.3 RBC 4.24 Hgb 12.6 Hct 37.6 MCV 88.6 MCH 29.8 MCHC 33.6 RDW 14.0 Plt Count 181 D MPV 9.2 D Sodium 138 Potassium 4.4 Chloride 105 Carbon Dioxide 27 Anion Gap 6 L BUN 8 Creatinine 0.6 Creat Clearance w eGFR 115.13 Random Glucose 84 Calcium 9.2 Total Bilirubin 0.3 AST 15 ALT 18 Alkaline Phosphatase 85 Total Protein 7.4 Albumin 3.8 RPR Titer HIV 1&2 Antibody Screen Negative HIV P24 Antigen Negative 01/25/19 13:00 WBC RBC Hgb Hct MCV MCH MCHC RDW Plt Count MPV Sodium Potassium Chloride Carbon Dioxide Anion Gap BUN Creatinine Creat Clearance w eGFR Random Glucose Calcium Total Bilirubin AST ALT Alkaline Phosphatase Total Protein Albumin RPR Titer Nonreactive HIV 1&2 Antibody Screen HIV P24 Antigen aaox3 ambulating no acute distress Assessment: 01/26/19 12:28 withdrawal sx Plan: continue detox increase fluids
[2019-01-26] MEDS: cloNIDine HCL 0.1 MG TABLET PO PRN ×2 (13:54→20:02)
[2019-01-26] MEDS: hydrOXYzine PAMOATE 25 MG CAPSULE (FP) PO PRN (15:32)
[2019-01-26] MEDS: AMMONIUM LACTATE 12% LOTION 225 GM BOTTLE TP SCH ×2 (15:52→22:10)
[2019-01-26] MEDS: THIAMINE HCL 100 MG TABLET (FP) PO SCH (22:12)
[2019-01-26] MEDS: QUEtiapine FUMARATE 50 MG TABLET PO PRN (22:12)
[2019-01-27] MEDS: diazePAM 5 MG TABLET PO PRN ×4 (06:15→22:16)
[2019-01-27] MEDS ORDERED: METHADONE HCL 10 MG TABLET (FOR DETOX USE ONLY) PO ONE (10:00)
[2019-01-27] MEDS: NICOTINE 21 MG/24 HOURS TOPICAL PATCH TD SCH (10:32)
[2019-01-27] MEDS: AMMONIUM LACTATE 12% LOTION 225 GM BOTTLE TP SCH ×2 (10:33→22:30)
[2019-01-27] MEDS: METHOCARBAMOL 500 MG TABLET PO PRN ×2 (10:34→22:16)
[2019-01-27] MEDS: PRENATAL VITAMINS W/ FOLIC ACID TABLET (FP) PO SCH (11:30)
--- NOTE | 2019-01-27 12:07 | PN ---
BHS COWS - Scale Resting Pulse: 0= [place] 80 or Below Sweatin=Flushed/Facial Moisture Restless Observation: 1= Difficult to Sit Still Pupil Size: 0= Normal to Room Light Bone or Joint Aches: 2= Severe Diffuse Aches Runny Nose/ Eye Tearin= Nasal Congestion GI Upset > 30mins: 0= None Tremor Observation of Outstretched Hands: 2= Slight Tremor Visible Yawning Observation: 2= >3x During Session Anxiety or Irritability: 2=Irritable/Anxious Goose Flesh Skin: 0=Smooth Skin COWS Score: 12 BHS Progress Note (SOAP) Subjective: sweats mild shakes interrupted sleep anxiety Objective: 01/27/19 12:09 Vital Signs Temperature 98.2 F 01/27/19 09:17 Pulse Rate 74 01/27/19 09:17 Respiratory Rate 18 01/27/19 09:17 Blood Pressure 108/74 01/27/19 09:17 O2 Sat by Pulse Oximetry (%) Laboratory Tests 01/25/19 01/25/19 01/25/19 13:00 13:00 13:00 WBC 6.3 RBC 4.24 Hgb 12.6 Hct 37.6 MCV 88.6 MCH 29.8 MCHC 33.6 RDW 14.0 Plt Count 181 D MPV 9.2 D Sodium 138 Potassium 4.4 Chloride 105 Carbon Dioxide 27 Anion Gap 6 L BUN 8 Creatinine 0.6 Creat Clearance w eGFR 115.13 Random Glucose 84 Calcium 9.2 Total Bilirubin 0.3 AST 15 ALT 18 Alkaline Phosphatase 85 Total Protein 7.4 Albumin 3.8 RPR Titer HIV 1&2 Antibody Screen Negative HIV P24 Antigen Negative 01/25/19 13:00 WBC RBC Hgb Hct MCV MCH MCHC RDW Plt Count MPV Sodium Potassium Chloride Carbon Dioxide Anion Gap BUN Creatinine Creat Clearance w eGFR Random Glucose Calcium Total Bilirubin AST ALT Alkaline Phosphatase Total Protein Albumin RPR Titer Nonreactive HIV 1&2 Antibody Screen HIV P24 Antigen aaox3 ambulating no acute distress Assessment: 01/27/19 12:09 withdrawal sx Plan: continue detox increase fluids
[2019-01-27] MEDS: hydrOXYzine PAMOATE 25 MG CAPSULE (FP) PO PRN ×2 (14:41→22:16)
[2019-01-27 22:04] VITALS: BP 107/68; PULSE 53
[2019-01-27] MEDS: QUEtiapine FUMARATE 50 MG TABLET PO PRN (22:16)
[2019-01-27] MEDS: cloNIDine HCL 0.1 MG TABLET PO PRN (22:16)
[2019-01-27] MEDS: THIAMINE HCL 100 MG TABLET (FP) PO SCH (22:16)
[2019-01-28] MEDS: diazePAM 5 MG TABLET PO PRN (06:07)
[2019-01-28 06:49] VITALS: TEMP 97.9
[2019-01-28] MEDS: PRENATAL VITAMINS W/ FOLIC ACID TABLET (FP) PO SCH (09:11)
--- NOTE | 2019-01-28 09:32 | DS ---
[facility] Detox Discharge Summary Admission Date: 01/25/19 Discharge Date: 01/28/19 - History Present History: Opioid Dependence - Physical Exam Results Vital Signs: Vital Signs Temperature 97.9 F 01/28/19 06:00 Pulse Rate 53 L 01/28/19 06:00 Respiratory Rate 18 01/28/19 06:00 Blood Pressure 107/68 01/27/19 22:03 O2 Sat by Pulse Oximetry (%) - Treatment Hospital Course: Detox Protocol Followed, Detoxed Safely, Responded well, Discharged Condition Good, Rehab Referral Accepted - Medication Discharge Medications: Ambulatory Orders Quetiapine Fumarate [Seroquel] 50 mg PO HS PRN 01/25/19 - Diagnosis (1) Insomnia Status: Chronic Qualifiers: Insomnia type: primary Qualified Code(s): F51.01 - Primary insomnia (2) Nicotine dependence Status: Chronic Qualifiers: Nicotine product type: cigarettes Substance use status: uncomplicated Qualified Code(s): F17.210 - Nicotine dependence, cigarettes, uncomplicated (3) Opioid dependence with withdrawal Status: Chronic - AMA Did Patient Leave Against Medical Advice: No (pt declined prefer outpatient)
[2019-01-28] MEDS ORDERED: METHADONE HCL 10 MG TABLET (FOR DETOX USE ONLY) PO ONE (10:00)
[2019-01-29] MEDS ORDERED: METHADONE HCL 5 MG TABLET (FOR DETOX USE ONLY) PO ONE (06:00)
== END 2019-01-28 09:17 | disposition home or self-care (01) | DRG 773 ==
LOC: YASAS 10:32 → Y6N 12:45
PROVIDERS: ADMIT Surgery; ATTEND Surgery
PROC: HZ2ZZZZ Detoxification Services for Substance Abuse Treatment (ICD-10-PCS; principal; 2019-01-25)
DX: F11.23 Opioid dependence with withdrawal (principal); F17.210 Nicotine dependence, cigarettes, uncomplicated; F51.01 Primary insomnia
CPT/HCPCS: 36415; 80053; 85027; 86593; 87389; J0735; Q0162

== ENCOUNTER 2023-04-09 21:21 | Inpatient (IN) | payer OTHER ==
[2023-04-09 21:56] VITALS: BMI 18.8
[2023-04-09] MEDS ORDERED: ONDANSETRON *ODT* 4 MG TABLET SL PRN (23:49)
[2023-04-09] MEDS ORDERED: ACETAMINOPHEN 325 MG TABLET (FP) PO PRN (23:49)
[2023-04-09] MEDS ORDERED: BENZOCAINE/MENTHOL (CHLORASEPTIC ) LOZENGE MM PRN (23:49)
[2023-04-09] MEDS ORDERED: NICOTINE POLACRILEX 2 MG GUM BUC PRN (23:49)
[2023-04-09] MEDS ORDERED: DICYCLOMINE HCL 10 MG CAPSULE PO PRN (23:49)
[2023-04-09] MEDS ORDERED: IBUPROFEN 600 MG TABLET (FP) PO PRN (23:49)
[2023-04-09] MEDS ORDERED: BENZONATATE 200 MG CAPSULE PO PRN (23:49)
[2023-04-09] MEDS ORDERED: MAGNESIUM HYDROX 2400MG/30ML ORAL SUSPENSION 30 ML CUP PO PRN (23:49)
[2023-04-09] MEDS ORDERED: NALOXONE HCL (KLOXXADO) 8 MG SPRAY NS PRN (23:49)
[2023-04-09] MEDS ORDERED: LOPERAMIDE HCL 2 MG CAPSULE PO PRN (23:49)
[2023-04-09] MEDS ORDERED: NALOXONE HCL 0.4 MG/ML VIAL IM PRN (23:49)
[2023-04-09] MEDS ORDERED: guaiFENesin 600 MG TABLET.ER (FP) PO PRN (23:49)
[2023-04-09] MEDS ORDERED: MAG HYDROX/AL HYDROX/SIMETH 30 ML UNIT-DOSE CUP PO PRN (23:49)
[2023-04-09] MEDS ORDERED: IBUPROFEN 400 MG TABLET (FP) PO PRN (23:49)
[2023-04-09] MEDS ORDERED: POLYETHYLENE GLYCOL (HEALTHYLAX) 3350 17 GM PACKET PO PRN (23:49)
[2023-04-09] MEDS ORDERED: cloNIDine HCL 0.1 MG TABLET PO PRN (23:53)
[2023-04-09] MEDS ORDERED: methaDONE HCL 10 MG TABLET (FOR DETOX USE ONLY) PO ONE (23:53)
[2023-04-10] MEDS ORDERED: methaDONE HCL 10 MG TABLET (FOR DETOX USE ONLY) ONE (00:06)
[2023-04-10] MEDS ORDERED: TRIMETHOBENZAMIDE HCL 200MG/2ML INJ IM ONE (00:17)
[2023-04-10] MEDS: NICOTINE 21 MG/24 HOURS TOPICAL PATCH TD SCH (10:05)
[2023-04-10] MEDS: PRENATAL VITAMINS W/ FOLIC ACID TABLET (FP) PO SCH (10:05)
[2023-04-10] MEDS ORDERED: TRIMETHOBENZAMIDE HCL 200MG/2ML INJ IM PRN (10:13)
[2023-04-10] MEDS: diazePAM 5 MG TABLET PO PRN ×2 (10:51→20:11)
[2023-04-10] MEDS: BISMUTH SUBSALICYLATE 524 MG/30 ML PO PRN (19:58)
[2023-04-10] MEDS: THIAMINE HCL 100 MG TABLET (FP) PO SCH (22:44)
[2023-04-10] MEDS: MELATONIN 5 MG TABLETS PO SCH (22:44)
[2023-04-10] MEDS: METHOCARBAMOL 500 MG TABLET PO PRN (22:44)
[2023-04-11] MEDS: diazePAM 5 MG TABLET PO PRN ×4 (03:15→19:57)
[2023-04-11] MEDS ORDERED: methaDONE HCL 10 MG TABLET (FOR DETOX USE ONLY) PO ONE (10:00)
[2023-04-11] MEDS: PRENATAL VITAMINS W/ FOLIC ACID TABLET (FP) PO SCH (10:29)
[2023-04-11] MEDS: NICOTINE 21 MG/24 HOURS TOPICAL PATCH TD SCH (10:29)
[2023-04-11] MEDS: BISMUTH SUBSALICYLATE 524 MG/30 ML PO PRN (10:32)
[2023-04-11 10:37] LABS: HEMATOCRIT 42.1 % (32.4-45.2); HEMOGLOBIN 14.1 GM/dL (10.7-15.3); MCH 28.4 pg (25.7-33.7); MCHC 33.4 g/dl (32.0-36.0); MEAN CELL VOLUME 84.9 fl (80-96); MEAN PLT VOLUME 8.4 fl (7.5-11.1); PLATELET COUNT 407 10^3/uL (134-434); RBC 4.96 M/mm3 (3.60-5.2); RDW 13.7 % (11.6-15.6); WHITE BLOOD COUNT 11.7 K/mm3 (4.0-10.0)
[2023-04-11 10:46] LABS: POTASSIUM 3.1 mmol/L (3.5-5.1)
[2023-04-11 10:51] LABS: CALCIUM 10.4 mg/dL (8.5-10.1)
[2023-04-11 10:52] LABS: ALBUMIN 4.3 g/dl (3.4-5.0); BLOOD UREA NITROGEN 23.6 mg/dL (7-18)
[2023-04-11 10:55] LABS: CREATININE 0.7 mg/dL (0.55-1.3)
[2023-04-11 10:57] LABS: BILIRUBIN,TOTAL 0.7 mg/dL (0.2-1)
[2023-04-11] MEDS: MELATONIN 5 MG TABLETS PO SCH (22:13)
[2023-04-11] MEDS: POTASSIUM CHLORIDE ORAL LIQUID 20 MEQ/15 ML PO SCH (22:13)
[2023-04-11] MEDS: THIAMINE HCL 100 MG TABLET (FP) PO SCH (22:13)
[2023-04-12] MEDS: diazePAM 5 MG TABLET PO PRN ×4 (02:17→20:01)
[2023-04-12] MEDS: METHOCARBAMOL 500 MG TABLET PO PRN (05:50)
[2023-04-12] MEDS: ESCITALOPRAM OXALATE 10 MG TABLET PO SCH (10:19)
[2023-04-12] MEDS: PRENATAL VITAMINS W/ FOLIC ACID TABLET (FP) PO SCH (10:20)
[2023-04-12] MEDS: POTASSIUM CHLORIDE ORAL LIQUID 20 MEQ/15 ML PO SCH ×2 (10:21→22:14)
[2023-04-12] MEDS: NICOTINE 21 MG/24 HOURS TOPICAL PATCH TD SCH (10:22)
[2023-04-12] MEDS ORDERED: SUVOREXANT 10 MG TABLET PO PRN (22:00)
[2023-04-12] MEDS: THIAMINE HCL 100 MG TABLET (FP) PO SCH (22:15)
[2023-04-12 22:56] VITALS: RESP 18
[2023-04-13] MEDS: diazePAM 5 MG TABLET PO PRN (06:19)
[2023-04-13] MEDS ORDERED: methaDONE HCL 10 MG TABLET (FOR DETOX USE ONLY) PO ONE (10:00)
[2023-04-13 10:01] VITALS: BP 129/84; PULSE 71; TEMP 98.2
[2023-04-13] MEDS: NICOTINE 21 MG/24 HOURS TOPICAL PATCH TD SCH (10:31)
[2023-04-13] MEDS: ESCITALOPRAM OXALATE 10 MG TABLET PO SCH (10:34)
[2023-04-13] MEDS: PRENATAL VITAMINS W/ FOLIC ACID TABLET (FP) PO SCH (10:35)
[2023-04-13] MEDS: METHOCARBAMOL 500 MG TABLET PO PRN (10:47)
== END 2023-04-13 11:35 | disposition left against medical advice (07) | DRG 770 ==
LOC: YASAS 21:21 → Y3N 04-10 01:58
PROVIDERS: ADMIT Allergy & Immunology; ATTEND Surgery
PROC: HZ2ZZZZ Detoxification Services for Substance Abuse Treatment (ICD-10-PCS; principal; 2023-04-10)
DX: F11.23 Opioid dependence with withdrawal (principal); F13.230 Sedative, hypnotic or anxiolytic dependence with withdrawal, uncomplicated; F17.210 Nicotine dependence, cigarettes, uncomplicated; F19.282 Other psychoactive substance dependence with psychoactive substance-induced sleep disorder; F19.24 Other psychoactive substance dependence with psychoactive substance-induced mood disorder; F41.1 Generalized anxiety disorder; F43.10 Post-traumatic stress disorder, unspecified; E87.6 Hypokalemia; R79.89 Other specified abnormal findings of blood chemistry; R11.2 Nausea with vomiting, unspecified
CPT/HCPCS: 36415; 80053; 81025; 84132; 85027; 86780; 87635; 87811; 93005; 93010; Q0162